=== PATIENT | male | born 1930 | race Caucasian/White ===

== ENCOUNTER → 2016-11-22 | Outpatient (CLI) | payer MEDICARE, BC ==
[2016-11-22 11:18] LABS: HEMOGLOBIN 15.6 g/dl (13.5-18.0)
[2016-11-22 11:22] LABS: HEMATOCRIT 46.3 % (42.0-52.0)
== END ==
LOC: COL.LAB 10:37
PROVIDERS: Family Medicine
DX: Z01.89 Encounter for other specified special examinations (principal)

== ENCOUNTER → 2016-12-10 | Outpatient (CLI) | payer MEDICARE, BC | LOC: COL.LAB 07:54 | DX: Z01.89 Encounter for other specified special examinations (principal) ==

== ENCOUNTER 2017-07-01 19:20 | Inpatient (IN) | payer MEDICARE, BC ==
[~2017-07-01] VITALS: Ht 167.6 cm; Wt 67.9 kg
[2017-07-01 20:20] LABS: COLLECTION METHOD CLEAN CATCH
[2017-07-01 20:22] LABS: BASO # 0.1 (0.0-0.2); BASO % 0.4 % (0.0-2.0); EOS # 0.5 (0.0-0.7); GRAN # 12.8 (1.4-6.5); GRAN % 82.4 % (42.2-75.2); LYMPH # 1.1 (1.2-3.4); LYMPH % 6.9 % (20.0-51.0); MEAN CELL VOLUME 92 fl (80.0-100.0); MEAN CORPUSCULAR HEMOGLOBIN 32 pg (27.0-31.0); MEAN CORPUSCULAR HGB CONC 34 g/dl (33.0-37.0); MEAN PLATELET VOLUME 11.7 fl (7.4-10.4); MONO # 1.1 (0.1-0.6); MONO % 6.9 % (1.7-9.3); PLATELET COUNT 202 K/mm3 (130-400); WHITE BLOOD COUNT 15.6 K/mm3 (4.8-10.8)
[2017-07-01 20:25] VITALS: BP 130/69; PULSE 66
[2017-07-01 20:26] LABS: MUCOUS Present /lpf; PH 5 (5-8); SQUAMOUS EPITHELIAL 0-2 /hpf; URINE APPEARANCE Clear; URINE BACTERIA None Seen /hpf; URINE BILIRUBIN Negative (NEGATIVE); URINE BLOOD 1+ (NEGATIVE); URINE COLOR Yellow; URINE GLUCOSE Negative (NEGATIVE); URINE KETONE Negative (NEGATIVE); URINE LEUKOCYTE ESTERASE Negative (NEGATIVE); URINE PROTEIN(semi-quant) Negative (NEGATIVE); URINE UROBILINOGEN Negative (NEGATIVE)
[2017-07-01 20:28] LABS: HEMATOCRIT 52.6 % (42.0-52.0)
[2017-07-01 20:34] LABS: ADJUSTED CALCIUM 9.5 mg/dL (8.4-10.2); ALBUMIN 5.2 gm/dL (3.5-5.0); BILIRUBIN,TOTAL 1.2 mg/dL (0.0-1.0); C-REACTIVE PROTEIN 5.3 mg/dL (0.0-0.9); CALCIUM 10.5 mg/dL (8.4-10.2); CREATININE, serum 1.86 mg/dL (0.66-1.25); POTASSIUM 3.6 mmol/L (3.4-5.0); TOTAL PROTEIN 8.8 gm/dL (6.4-8.2)
[2017-07-01] MEDS ORDERED: COREG12.5 MG PO (21:09)
[2017-07-01] MEDS ORDERED: RT SPIRIVA18 MCG IH (21:10)
[2017-07-01] MEDS ORDERED: MAG64 110 MG-181 ECT (21:10)
[2017-07-01] MEDS ORDERED: LOTENSIN40 MG PO (21:10)
[2017-07-01] MEDS ORDERED: NEXIUM 40MG40 MG PO (21:11)
[2017-07-01] MEDS ORDERED: ASPIRIN 81M81 MG/TA2 PO (21:12)
[2017-07-01] MEDS ORDERED: ZANTAC 7575 MG PO (21:12)
[2017-07-01] MEDS ORDERED: MICROZIDE12.5 MG PO (21:12)
[2017-07-01] MEDS ORDERED: NATURAL POTASS595 MG (21:13)
[2017-07-01 23:22] VITALS: BP 132/52; PULSE 67; TEMP 97.5
[2017-07-02] VITALS (7 sets, daily range): BP systolic 119–156; BP diastolic 46–79; PULSE 58–71; TEMP 97.6–98.4
[2017-07-02 05:33] LABS: BASO # 0.1 (0.0-0.2); BASO % 0.4 % (0.0-2.0); EOS # 0.4 (0.0-0.7); EOS % 2.7 % (0-4.0); GRAN # 11.1 (1.4-6.5); GRAN % 81.6 % (42.2-75.2); HEMATOCRIT 41.9 % (42.0-52.0); LYMPH # 0.8 (1.2-3.4); MEAN CELL VOLUME 92 fl (80.0-100.0); MEAN CORPUSCULAR HEMOGLOBIN 31 pg (27.0-31.0); MEAN CORPUSCULAR HGB CONC 34 g/dl (33.0-37.0); MEAN PLATELET VOLUME 11.2 fl (7.4-10.4); MONO # 1.2 (0.1-0.6); MONO % 9.1 % (1.7-9.3); PLATELET COUNT 185 K/mm3 (130-400); RED BLOOD COUNT 4.57 M/mm3 (4.20-5.60); WHITE BLOOD COUNT 13.6 K/mm3 (4.8-10.8)
[2017-07-02 05:36] LABS: HEMOGLOBIN 14.2 g/dl (13.5-18.0)
[2017-07-02 05:45] LABS: CALCIUM 8.7 mg/dL (8.4-10.2); CREATININE, serum 1.43 mg/dL (0.66-1.25); MAGNESIUM 1.6 mg/dL (1.6-2.3); PHOSPHOROUS 2.9 mg/dL (2.5-4.5); POTASSIUM 3.3 mmol/L (3.4-5.0)
[2017-07-02 11:50] LABS: INFLUENZA A NEGATIVE; INFLUENZA B NEGATIVE
[2017-07-03] VITALS (7 sets, daily range): BP systolic 126–157; BP diastolic 51–89; PULSE 52–76; TEMP 97.8–98.9
[2017-07-03 07:23] LABS: BASO % 0.2 % (0.0-2.0); EOS # 0.4 (0.0-0.7); EOS % 4.7 % (0-4.0); GRAN # 6.7 (1.4-6.5); GRAN % 75.6 % (42.2-75.2); HEMATOCRIT 39.2 % (42.0-52.0); HEMOGLOBIN 13.1 g/dl (13.5-18.0); LYMPH # 0.9 (1.2-3.4); LYMPH % 9.7 % (20.0-51.0); MEAN CELL VOLUME 93 fl (80.0-100.0); MEAN CORPUSCULAR HEMOGLOBIN 31 pg (27.0-31.0); MEAN CORPUSCULAR HGB CONC 33 g/dl (33.0-37.0); MEAN PLATELET VOLUME 11.7 fl (7.4-10.4); MONO # 0.8 (0.1-0.6); MONO % 9.5 % (1.7-9.3); PLATELET COUNT 163 K/mm3 (130-400); WHITE BLOOD COUNT 8.9 K/mm3 (4.8-10.8)
[2017-07-03 07:45] LABS: CALCIUM 8.2 mg/dL (8.4-10.2); CREATININE, serum 1.2 mg/dL (0.66-1.25); POTASSIUM 3.6 mmol/L (3.4-5.0)
[2017-07-04 05:17] VITALS: BP 145/75; PULSE 78; TEMP 98.3
[2017-07-04 08:23] VITALS: BP 103/74; PULSE 124; TEMP 98.8
[2017-07-04 08:56] LABS: CALCIUM 8.3 mg/dL (8.4-10.2); CREATININE, serum 1.11 mg/dL (0.66-1.25); MAGNESIUM 1.7 mg/dL (1.6-2.3); POTASSIUM 3.4 mmol/L (3.4-5.0)
== END 2017-07-04 11:27 | disposition home or self-care (01) | DRG 641 ==
LOC: COL.ER 19:20 → MEDICAL 21:40
PROVIDERS: Emergency Medicine; Nurse Practitioner; Physician Assistant
DX: E86.0 Dehydration (principal); N17.9 Acute kidney failure, unspecified; A08.4 Viral intestinal infection, unspecified; I48.2 Chronic atrial fibrillation; I10 Essential (primary) hypertension; E87.6 Hypokalemia; Z87.891 Personal history of nicotine dependence
CPT/HCPCS: 99222-AI; 99231-AI; 99239; J0696; J0744; J1650; J3475; J7030

== ENCOUNTER → 2018-01-29 | Outpatient (CLI) | payer MEDICARE, BC ==
[~2018-01-29] MED LIST: ASPIRIN 81M81 MG/TA2 PO; COREG12.5 MG PO; LOTENSIN40 MG PO; MAG64 110 MG-181 ECT; MICROZIDE12.5 MG PO; NATURAL POTASS595 MG; NEXIUM 40MG40 MG PO; RT SPIRIVA18 MCG IH; ZANTAC 7575 MG PO
[2018-01-29 10:44] LABS: HEMOGLOBIN 14.8 g/dl (13.5-18.0)
[2018-01-29 10:46] LABS: HEMATOCRIT 41.9 % (42.0-52.0)
== END ==
LOC: COL.LAB 09:45
PROVIDERS: Family Medicine
DX: Z01.89 Encounter for other specified special examinations (principal)